=== PATIENT | female | born 1950 | race Caucasian/White ===

== ENCOUNTER 2023-05-08 15:49 | Emergency (ER) | payer MEDICARE ==
--- NOTE | 2023-05-08 15:56 | ERPHSYRPT ---
- History of Present Illness Time Seen by Provider: 05/08/23 15:55 Source: patient, family Exam Limitations: no limitations Physician History: This is a overweight 72-year-old white female patient who presents to the emergency department at the insistence of her primary care provider, Dr. Sanjuana Yo. Yesterday, 05/07/2023, the patient was receiving an infusion of so matostatin for her treatment of carcinoid syndrome and was found to have a systolic blood pressure in the 180s. Patient was discharged home and instructed to follow-up with her primary care provider today, 05/08/2023. In between the 2 visits, the patient states her systolic blood pressure was running in the low 150s. Patient has no symptoms whatsoever. She denies headache. She denies shortness of breath. She denies chest pain. Patient did see her primary care provider at 1500 today prior to arrival and again her systolic blood pressure was in the 180 range. Patient was sent to the emergency department. Patient takes losartan for her high blood pressure issues. Patient has a history of chronic anemia, gout, hypothyroidism and hypertension. Patient's hemoglobin level yesterday, 05/07/2023, was approximately 11.6. Patient states that she sees her oil heat technician tomorrow, Dr. Scanlon, on 05/09/2023 in the morning to address this issue of elevated blood pressure. Timing/Duration: yesterday Severity: mild Associated Symptoms: denies symptoms Allergies/Adverse Reactions: adhesive tape Allergy (Verified 05/08/23 16:26) nickel Allergy (Verified 05/08/23 16:26) Penicillins Allergy (Verified 05/08/23 16:26) scopolamine Allergy (Verified 05/08/23 16:26) antifungals Allergy (Uncoded 05/08/23 16:26) Home Medications: Allopurinol 300 mg [Zyloprim 300 mg] 300 mg PO DAILY 05/08/23 [History] Ferrous Sulfate 325 mg [Feosol 325 mg] 325 mg PO DAILY 05/08/23 [History] Furosemide 20 mg [Lasix 20 mg] 20 mg PO DAILY 05/08/23 [History] Levothyroxine Sodium 25 Mcg [Synthroid 25 Mcg] 25 mcg PO DAILY 05/08/23 [History] Losartan Potassium 100 mg PO DAILY 05/08/23 [History] Progesterone, Micronized [Progesterone] 200 mg PO DAILY 05/08/23 [History] Tizanidine HCl 2 mg PO HS 05/08/23 [History] estradioL [Estradiol] 2 mg PO DAILY 05/08/23 [History] Travel Risk - International Travel Have you traveled outside of the country in past 3 weeks: No - Coronavirus Screening Are you exhibiting any of the following symptoms?: No Close contact with a COVID-19 positive Pt in past 14-21 Days: No - Review of Systems Constitutional: No Symptoms Eyes: No Symptoms Ears, Nose, & Throat: No Symptoms Respiratory: No Symptoms Cardiac: No Symptoms Abdominal/Gastrointestinal: No Symptoms Genitourinary Symptoms: No Symptoms Musculoskeletal: No Symptoms Skin: No Symptoms Neurological: No Symptoms Psychological: No Symptoms Endocrine: No Symptoms Hematologic/Lymphatic: No Symptoms Immunological/Allergic: No Symptoms All Other Systems: Reviewed and Negative - Past Medical History Pertinent Past Medical History: Yes - Past Surgical History Past Surgical History: Yes - Nursing Vital Signs Nursing Vital Signs: Initial Vital Signs Temperature 97.2 F 05/08/23 16:01 Pulse Rate 77 05/08/23 16:01 Respiratory Rate 20 05/08/23 16:01 Blood Pressure 138/107 05/08/23 16:01 O2 Sat by Pulse Oximetry 100 05/08/23 16:01 Pain Scale Pain Intensity 0 - Physical Exam General Appearance: no apparent distress, alert, obese Eye Exam: PERRL/EOMI, eyes nml inspection Ears, Nose, Throat Exam: normal ENT inspection, moist mucous membranes Neck Exam: normal inspection, non-tender, supple, full range of motion Respiratory Exam: normal breath sounds, lungs clear, airway intact, No chest tenderness, No respiratory distress Cardiovascular Exam: regular rate/rhythm, normal heart sounds, normal peripheral pulses Gastrointestinal/Abdomen Exam: soft, normal bowel sounds, No tenderness Pelvic Exam: not done Rectal Exam: not done Back Exam: normal inspection, normal range of motion, No CVA tenderness, No vertebral tenderness Extremity Exam: normal inspection, normal range of motion, pelvis stable Neurologic Exam: alert, oriented x 3, cooperative, terminal clerk II-XII nml as tested, normal mood/affect, nml cerebellar function, nml station & gait, sensation nml Skin Exam: normal color, warm, dry Lymphatic Exam: No adenopathy SpO2 Interpretation: normal O2 Delivery: Room Air - Course Nursing assessment & vital signs reviewed: Yes EKG Interpreted by Me: RATE (77), NORMAL AXIS, Left Bundle Branch Block, Other (No acute ischemic changes on today's twelve-lead EKG. No comparison twelve- lead EKG available.) Ordered Tests: Active Orders 24 hr Category Date Time Status Protection Specialist STAT Care 05/08/23 17:53 Active EKG-ER Only STAT Care 05/08/23 17:55 Active IV Insertion STAT Care 05/08/23 17:53 Active CBC W DIFF Stat Lab 05/08/23 17:10 Completed CMP Stat Lab 05/08/23 17:10 Completed MAGNESIUM Stat Lab 05/08/23 17:10 Completed NT PRO BNPII Stat Lab 05/08/23 17:10 Completed T4 (Thyroxine) Stat Lab 05/08/23 17:10 Completed TROPONIN Q4H Lab 05/08/23 17:10 Completed TROPONIN Q4H Lab 05/08/23 22:00 Ordered TROPONIN Q4H Lab 05/09/23 02:00 Ordered TSH [TSH, 3RD Generation] Stat Lab 05/08/23 17:10 Completed Medication Summary Discontinued Medications Generic Name Dose Route Start Last Admin Trade Name Freq PRN Reason Stop Dose Admin Metoprolol Tartrate 5 mg 05/08/23 16:50 05/08/23 17:24 Metoprolol Tartrate 5 Mg/5 Ml Vial IV 05/08/23 16:51 5 mg STAT ONE Administration Metoprolol Tartrate Confirm 05/08/23 17:23 Metoprolol Tartrate 5 Mg/5 Ml Vial Administered 05/08/23 17:24 Dose 5 mg IV [employer] ONE Lab/Rad Data: Laboratory Result Diagrams 05/08/23 17:10 05/08/23 17:10 Laboratory Results 05/08/23 05/08/23 05/08/23 Range/Units 17:10 17:10 17:10 WBC 7.0 (4.0-10.5) x10^3/uL RBC 3.57 L (4.1-5.4) x10^6/uL Hgb 11.6 L (12.0-16.0) g/dL Hct 36.8 (35-47) % MCV 103.1 H (78-100) fL MCH 32.5 H (26-32) pg MCHC 31.5 L (32-36) g/dL RDW 14.0 (11.5-14.0) % Plt Count 284 (150-450) x10^3/uL MPV 10.8 (7.5-11.0) fL Gran % 61.6 (36.0-66.0) % Immature Gran % (Auto) 0.3 (0.00-0.4) % Nucleat RBC Rel Count 0.0 (0.00-0.1) % Eos # (Auto) 0.19 (0-0.5) x10^3/uL Immature Gran # (Auto) 0.02 (0.00-0.03) x10^3u/L Absolute Lymphs (auto) 1.66 (1.0-4.6) x10^3/uL Absolute Monos (auto) 0.75 (0.0-1.3) x10^3/uL Absolute Nucleated RBC 0.00 (0.00-0.01) x10^3u/L Lymphocytes % 23.9 L (24.0-44.0) % Monocytes % 10.8 (0.0-12.0) % Eosinophils % 2.7 (0.00-5.0) % Basophils % 0.7 (0.0-0.4) % Absolute Granulocytes 4.28 (1.4-6.9) x10^3/uL Basophils # 0.05 (0-0.4) x10^3/uL Sodium 136 L (137-145) mmol/L Potassium 4.4 (3.5-5.1) mmol/L Chloride 104 (98-107) mmol/L Carbon Dioxide 22 (22-30) mmol/L Anion Gap 13.4 (5-15) MEQ/L BUN 25 H (7-17) mg/dL Creatinine 0.85 (0.52-1.04) mg/dL Estimated GFR 71.9 ML/MIN Glucose 95 (74-106) mg/dL Calcium 9.4 (8.4-10.2) mg/dL Magnesium 1.4 L (1.6-2.3) mg/dL Total Bilirubin 0.20 (0.2-1.3) mg/dL AST 30 (14-36) U/L ALT 26 (0-35) U/L Alkaline Phosphatase 92 (38-126) U/L Troponin I < 0.012 (0.000-0.034) ng/mL NT-Pro-B Natriuret Pep 376 (<300) pg/mL Serum Total Protein 6.9 (6.3-8.2) g/dL Albumin 3.9 (3.5-5.0) g/dL Thyroxine (T4) (5.53-10.96) ug/dL TSH 3rd Generation (0.47-4.68) mIU/L 05/08/23 05/08/23 Range/Units 17:10 17:10 WBC (4.0-10.5) x10^3/uL RBC (4.1-5.4) x10^6/uL Hgb (12.0-16.0) g/dL Hct (35-47) % MCV (78-100) fL MCH (26-32) pg MCHC (32-36) g/dL RDW (11.5-14.0) % Plt Count (150-450) x10^3/uL MPV (7.5-11.0) fL Gran % (36.0-66.0) % Immature Gran % (Auto) (0.00-0.4) % Nucleat RBC Rel Count (0.00-0.1) % Eos # (Auto) (0-0.5) x10^3/uL Immature Gran # (Auto) (0.00-0.03) x10^3u/L Absolute Lymphs (auto) (1.0-4.6) x10^3/uL Absolute Monos (auto) (0.0-1.3) x10^3/uL Absolute Nucleated RBC (0.00-0.01) x10^3u/L Lymphocytes % (24.0-44.0) % Monocytes % (0.0-12.0) % Eosinophils % (0.00-5.0) % Basophils % (0.0-0.4) % Absolute Granulocytes (1.4-6.9) x10^3/uL Basophils # (0-0.4) x10^3/uL Sodium (137-145) mmol/L Potassium (3.5-5.1) mmol/L Chloride (98-107) mmol/L Carbon Dioxide (22-30) mmol/L Anion Gap (5-15) MEQ/L BUN (7-17) mg/dL Creatinine (0.52-1.04) mg/dL Estimated GFR ML/MIN Glucose (74-106) mg/dL Calcium (8.4-10.2) mg/dL Magnesium (1.6-2.3) mg/dL Total Bilirubin (0.2-1.3) mg/dL AST (14-36) U/L ALT (0-35) U/L Alkaline Phosphatase (38-126) U/L Troponin I (0.000-0.034) ng/mL NT-Pro-B Natriuret Pep (<300) pg/mL Serum Total Protein (6.3-8.2) g/dL Albumin (3.5-5.0) g/dL Thyroxine (T4) 8.49 (5.53-10.96) ug/dL TSH 3rd Generation 2.790 (0.47-4.68) mIU/L - Progress Progress: improved, re-examined Progress Note: 05/08/23 16:33 This patient's medical issue is 1 of moderate complexity. Level complex in the work-up performed is based on review of the patient's past medical history, review of the patient's medication list, review the patient's drug allergy list, history present illness and physical findings on examination. This patient work-up includes to venous line placement, twelve-lead EKG, CBC, CMP, magnesium level, troponin level, BNP. 05/08/23 18:28 I interpreted the labs that were resulted. Her magnesium is slightly low. I will provide her with 1 g of intravenous magnesium. Patient will be discharged to home and she is to continue her medication as prescribed and to follow-up with her oil heat technician tomorrow on 05/09/2023 Counseled pt/family regarding: lab results, diagnosis, need for follow-up Medical Desision Making - Diagnostic Testing Diagnostic test were ordered, analyzed, and reviewed by me: Yes - Risk of complications Low Risk: Low risk of morbidity from additional dx testing or treatment - Departure Departure Disposition: Home Clinical Impression: Hypertension, Hypomagnesemia Condition: Stable Critical Care Time: No Referrals: ESSIE YO [Primary Care Provider] - Follow up/PCP as directed Additional Instructions: Plenty of fluids. Take your medication as prescribed. Monitor your blood pressure and keep a written log of the value this evening and then repeat it tomorrow morning and take this to your oil heat technician tomorrow morning.
[2023-05-08 16:24] VITALS: TEMP 97.2
[2023-05-08] MEDS ORDERED: LOPRESSOR INJECTION IV ONE ×2 (16:50→17:23)
[2023-05-08 18:03] LABS: Absolute Neutrophil Ct (ANC) 4.28 x10^3/uL (1.4-6.9); BASOPHIL % 0.7 % (0.0-0.4); Basophil (Absolute #) 0.05 x10^3/uL (0-0.4); Eosinophil % 2.7 % (0.00-5.0); Eosinophil (Absolute #) 0.19 x10^3/uL (0-0.5); Hematocrit 36.8 % (35-47); Hemoglobin 11.6 g/dL (12.0-16.0); IMMATURE GRAN # 0.02 x10^3u/L (0.00-0.03); IMMATURE GRAN % 0.3 % (0.00-0.4); Lymphocyte (Absolute #) 1.66 x10^3/uL (1.0-4.6); Lymphocytes % 23.9 % (24.0-44.0); Mean Cell Volume 103.1 fL (78-100); Mean Corpuscular Hemoglobin 32.5 pg (26-32); Mean Corpuscular Hgb Concent. 31.5 g/dL (32-36); Mean Platelet Volume 10.8 fL (7.5-11.0); Monocyte (Absolute #) 0.75 x10^3/uL (0.0-1.3); Monocytes % 10.8 % (0.0-12.0); Neutrophil % 61.6 % (36.0-66.0); Platelet Count 284 x10^3/uL (150-450); Red Blood Count 3.57 x10^6/uL (4.1-5.4)
[2023-05-08 18:08] LABS: ALBUMIN 3.9 g/dL (3.5-5.0); ANION GAP 13.4 MEQ/L (5-15); BILIRUBIN,TOTAL 0.2 mg/dL (0.2-1.3); Calcium 9.4 mg/dL (8.4-10.2); Creatinine 1 0.85 mg/dL (0.52-1.04); EST GLOMERULAR FILTRATION RATE 71.9 ML/MIN; MAGNESIUM 1.4 mg/dL (1.6-2.3); Potassium 4.4 mmol/L (3.5-5.1); Total Protein 6.9 g/dL (6.3-8.2)
[2023-05-08 18:20] LABS: NT PRO BNPII 376 pg/mL (<300); TROPONIN < 0.012 ng/mL (0.000-0.034)
[2023-05-08] MEDS ORDERED: Magnesium 1 Gm / 100 Ml D5W*** 100 ML IV ONE (18:30)
[2023-05-08] MEDS ORDERED: MAG-OX 400 PO ONE (18:31)
[2023-05-08] MEDS ORDERED: MAG-OX 400 ONE (18:36)
[2023-05-08 18:41] VITALS: BP 159/76; PULSE 63; RESP 16; O2SAT 97
== END 2023-05-08 18:57 | disposition home or self-care (01) ==
LOC: ED 15:49
DX: I10 Essential (primary) hypertension (principal); E83.42 Hypomagnesemia; Z79.899 Other long term (current) drug therapy
CPT/HCPCS: 36000; 36415; 80053; 83735; 83880; 84436; 84443; 84484; 85025; 93005; 93041; 96374; 99284; A9270-GY

== ENCOUNTER 2023-07-02 11:08 | Observation (INO) | payer MEDICARE ==
[~2023-07-02 11:08] MED LIST: Decadron 4 MG INJ IV ONE; Sodium Chloride 0.9(Preservative Free) 10 ML IJ ONE; XYLOCAINE-MPF 1% 5ML SDV IJ ONE
[2023-07-02] MEDS ORDERED: DIPRIVAN 200 MG/20 ML IV ONE (13:32)
[2023-07-02] MEDS ORDERED: MORPHINE SULFATE 2 MG INJ ONE ×2 (13:48→14:08)
[2023-07-02] MEDS ORDERED: Hydromorphone 1 mg/ml Injection ONE ×3 (14:29→14:52)
--- NOTE | 2023-07-02 15:07 | XRAY ---
Indication: Left L4-S1 transforaminal NAHID. Intraoperative fluoroscopy provided for 34 seconds. 6 digital spot images submitted for interpretation demonstrates posterior needle tips projecting over the expected left L4 and L5 nerve roots. Small amount of contrast injected for needle tip placement. Correlate with intraoperative findings/report.
--- NOTE | 2023-07-02 15:08 | XRAY ---
Indication: Left piriformis injection. Intraoperative fluoroscopy provided for 11 seconds. Single digital spot images submitted for interpretation demonstrates posterior needle tip projecting over the left piriformis. Small amount of contrast injected for needle tip placement. Correlate with intraoperative findings/report.
[2023-07-02] MEDS ORDERED: Zofran 4 MG/2 ML VIAL ONE (15:29)
[2023-07-02] MEDS ORDERED: Lactated Ringers 1,000 ML IV ONE (16:51)
--- NOTE | 2023-07-02 16:57 | XRAY ---
34 seconds of fluoroscopy was used in surgery for a left L4-S1 transforaminal NAHID.
--- NOTE | 2023-07-02 16:57 | XRAY ---
11 seconds of fluoroscopy was used in surgery for a left piriformis injection.
--- NOTE | 2023-07-02 17:13 | PCM.HP ---
History of Present Illness - Chief Complaint Chief Complaint: vomiting post anesthesia Date: 07/02/23 History of Present Illness: is a 72 year old female she with PMHX of IBS, pacemaker, kidney stones, Carcinoid syndrome (follows with oncology and gets injections Q 3 weeks, last one was 1 weeks ago), multiple lipomas involving liver, pancreas and intestines, HTN, hypothyroidism, and most recently sciatic nerve pain. She received a transforaminal and piriformis injection with Dr. Leong today with MAC anesthesia. Post op she had some pain that was well controlled with Morphine. However, she is having continued bouts of nausea and vomiting. Dr. Leong asked that we keep her overnight for observation. Will continue antiemetics, and pain meds PRN. She denies any further concerns at this time. - Review of Systems Constitutional: No Fever, No Chills Eyes: No Symptoms Ears, Nose, & Throat: No Symptoms Respiratory: No Cough, No Short Of Breath Cardiac: No Chest Pain, No Edema, No Syncope Abdominal/Gastrointestinal: Nausea, Vomiting, No Abdominal Pain, No Diarrhea Genitourinary Symptoms: No Dysuria Musculoskeletal: No Back Pain, No Neck Pain Skin: No Rash Neurological: No Dizziness, No Focal Weakness, No Sensory Changes Psychological: No Symptoms Endocrine: No Symptoms Hematologic/Lymphatic: No Symptoms Immunological/Allergic: No Symptoms Medications & Allergies Home Medications: Home Medication List Allopurinol 300 mg [Zyloprim 300 mg] 300 mg PO DAILY 05/08/23 [History Confirmed 07/02/23] Ferrous Sulfate 325 mg [Feosol 325 mg] 325 mg PO DAILY 05/08/23 [History Confirmed 07/02/23] Furosemide 20 mg [Lasix 20 mg] 20 mg PO DAILY 05/08/23 [History Confirmed 07/02/23] Levothyroxine Sodium 25 Mcg [Synthroid 25 Mcg] 25 mcg PO UD 05/08/23 [History Confirmed 07/02/23] Progesterone, Micronized [Progesterone] 200 mg PO DAILY 05/08/23 [History Confirmed 07/02/23] Tizanidine HCl 2 mg PO 1300 05/08/23 [History Confirmed 07/02/23] estradioL [Estradiol] 2 mg PO DAILY 05/08/23 [History Confirmed 07/02/23] Acetaminophen 325 mg [Tylenol 325 mg] 650 mg PO QID 07/02/23 [History Confirmed 07/02/23] Calcium Carbonate [Calcium] 5,000 iu PO DAILY 07/02/23 [History Confirmed 07/02/23] Cholecalciferol (Vitamin D3) [Vitamin D3] 5,000 iu PO DAILY 07/02/23 [History Confirmed 07/02/23] Cyanocobalamin (Vitamin B-12) [Vitamin B-12] 5,000 iu PO DAILY 07/02/23 [History Confirmed 07/02/23] Magnesium Oxide [Magnesium] 400 mg PO DAILY 07/02/23 [History Confirmed 07/02/23] Multivit-Min/Iron/Folic Acid/K [Adults Multivitamin Caplet] 1 each PO DAILY 07/02/23 [History Confirmed 07/02/23] Octreotide Acetate [Sandostatin] 30 mcg IM UD 07/02/23 [History Confirmed 07/02/23] Spironolact/Hydrochlorothiazid [Spironolactone-Hctz 25-25 Tab] 1 each PO DAILY 07/02/23 [History Confirmed 07/02/23] Allergies/Adverse Reactions: Allergies Allergy/AdvReac Type Severity Reaction Status Date / Time adhesive tape Allergy Verified 05/08/23 16:26 nickel Allergy Verified 05/08/23 16:26 Penicillins Allergy Verified 05/08/23 16:26 scopolamine Allergy Verified 05/08/23 16:26 antifungals Allergy Uncoded 05/08/23 16:26 - Past Medical History Past Medical History: Yes Cardiac History: Hypertension Endocrine Medical History: Hypothyroidism GI Medical History: Other Comment: anemia. carcenoid syndrome. c diff several times - Past Surgical History Past Surgical History: Yes Cardiac History: Pacemaker GI Surgical History: Cholecystectomy, Colon Resection Musculskeletal Surgical Hx: Orthopedic Surgery Female Surgical History: Hysterectomy Other Surgical History: foot surgery, breast reduction, fundo plycation - Social History Smoking Status: Never smoker Exposure to second hand smoke: No Alcohol: None Drug Use: none - Physical Exam General Appearance: no apparent distress, alert Neurologic Exam: alert, oriented x 3, cooperative, normal mood/affect, nml cerebellar function, nml station & gait, sensation nml, No motor deficits Eye Exam: PERRL/EOMI, eyes nml inspection Ears, Nose, Throat Exam: normal ENT inspection, TMs normal, pharynx normal, moist mucous membranes Neck Exam: normal inspection, non-tender, supple, full range of motion Respiratory Exam: normal breath sounds, lungs clear, No respiratory distress Cardiovascular Exam: regular rate/rhythm, normal heart sounds, normal peripheral pulses Gastrointestinal/Abdomen Exam: soft, normal bowel sounds, No tenderness, No mass Back Exam: normal inspection, normal range of motion, No CVA tenderness, No vertebral tenderness Extremity Exam: normal inspection, normal range of motion, pelvis stable Skin Exam: normal color, warm, dry, No rash Lymphatic Exam: No adenopathy Results - Radiology Impressions Radiology Exams & Impressions: Radiology Procedures Category Date Time Status FLUORO FOR NAHID-PMG Routine Exams 07/02/23 13:42 [address]O GUIDE NEEDLE PLACE-PMG Routine Exams 07/02/23 13:42 Completed LUMBAR LIMITED (2 OR 3 VIEWS) Routine Exams 07/02/23 13:42 Completed PELVIS (1 OR 2 VIEWS) Routine Exams 07/02/23 13:42 Completed Assessment/Plan (1) Postoperative nausea and vomiting Current Visit: Yes Status: Acute Assessment & Plan: - labs pending - Zofran, compazine alternate PRN - clear liquid diet - IVF- gentle hydration d/t heart hx - tele - Hold all other home meds for now. Code(s): R11.2 - NAUSEA WITH VOMITING, UNSPECIFIED; Z98.890 - OTHER SPECIFIED POSTPROCEDURAL STATES (2) Hypertension Current Visit: No Status: Acute Assessment & Plan: - Start amlodipine 5mg now with lasix - pt reports + edema with amlodipine so this is a recent reduced dose of amlodipine and added lasix by cardiology. Code(s): I10 - ESSENTIAL (PRIMARY) HYPERTENSION (3) Obesity, Class III, BMI 40-49.9 (morbid obesity) Current Visit: Yes Status: Acute Assessment & Plan: -advised diet and exercise control. Code(s): E66.01 - MORBID (SEVERE) OBESITY DUE TO EXCESS CALORIES
[2023-07-02] MEDS ORDERED: Compazine 10 MG/2 ML IM PRN (17:17)
[2023-07-02] MEDS ORDERED: Zofran 4 MG/2 ML VIAL IV PRN (17:17)
[2023-07-02] MEDS ORDERED: TYLENOL 325 MG PO PRN (17:18)
[2023-07-02] MEDS ORDERED: NORVASC 5 MG PO ONE (17:57)
[2023-07-02] MEDS ORDERED: Sodium Chloride 0.9% 1000 ML 1,000 ML IV SCH (18:15)
[2023-07-02 18:50] VITALS: RESP 18
[2023-07-02 19:09] LABS: Hematocrit 40.9 % (35-47); Hemoglobin 12.9 g/dL (12.0-16.0); Mean Corpuscular Hemoglobin 32.5 pg (26-32); Mean Corpuscular Hgb Concent. 31.5 g/dL (32-36); Mean Platelet Volume 10.3 fL (7.5-11.0); Platelet Count 295 x10^3/uL (150-450); Red Blood Count 3.97 x10^6/uL (4.1-5.4); White Blood Count 10.3 x10^3/uL (4.0-10.5)
[2023-07-02 19:24] LABS: ALBUMIN 4.4 g/dL (3.5-5.0); ANION GAP 14.7 MEQ/L (5-15); BILIRUBIN,TOTAL 0.5 mg/dL (0.2-1.3); Calcium 9.2 mg/dL (8.4-10.2); Creatinine 1 0.92 mg/dL (0.52-1.04); EST GLOMERULAR FILTRATION RATE 65.3 ML/MIN; MAGNESIUM 1.5 mg/dL (1.6-2.3); Potassium 3.5 mmol/L (3.5-5.1); Total Protein 7.8 g/dL (6.3-8.2)
[2023-07-02] MEDS: LASIX 20 MG PO SCH (20:25)
[2023-07-03 04:58] LABS: Hemoglobin 12.7 g/dL (12.0-16.0); Mean Corpuscular Hemoglobin 32.4 pg (26-32); Mean Corpuscular Hgb Concent. 31.8 g/dL (32-36); Mean Platelet Volume 10.2 fL (7.5-11.0); Platelet Count 345 x10^3/uL (150-450); Red Blood Count 3.92 x10^6/uL (4.1-5.4); White Blood Count 11.3 x10^3/uL (4.0-10.5)
[2023-07-03 05:01] VITALS: O2SAT 96
[2023-07-03 05:45] LABS: ALBUMIN 4.3 g/dL (3.5-5.0); ANION GAP 14.7 MEQ/L (5-15); BILIRUBIN,TOTAL 0.5 mg/dL (0.2-1.3); Calcium 9.2 mg/dL (8.4-10.2); Creatinine 1 0.91 mg/dL (0.52-1.04); EST GLOMERULAR FILTRATION RATE 66.2 ML/MIN; Potassium 4.1 mmol/L (3.5-5.1); Total Protein 7.6 g/dL (6.3-8.2)
[2023-07-03] MEDS ORDERED: MAG-OX 400 PO ONE (07:29)
[2023-07-03 07:32] VITALS: BP 150/67; PULSE 99; TEMP 96.5
[2023-07-03] MEDS ORDERED: SYNTHROID 25 MCG PO SCH (08:00)
[2023-07-03] MEDS: ESTRACE 1 MG PO SCH ×2 (08:14→08:27)
[2023-07-03] MEDS: NON-FORMULARY ITEM PO SCH ×2 (08:14→08:28)
[2023-07-03] MEDS: Calcium 500MG W/Vit D Tablet PO SCH ×2 (08:20→08:27)
[2023-07-03] MEDS: LASIX 20 MG PO SCH (08:20)
[2023-07-03] MEDS: FEOSOL 325 MG PO SCH ×2 (08:20→08:28)
--- NOTE | 2023-07-03 09:20 | PCM.DS ---
Discharge Summary Date of Admission: 07/02/23 17:14 Date of Discharge: 07/03/23 Admitting Physician: MICHELE MELENDEZ MD Primary Care Provider: ESSIE YO Allergies Allergies adhesive tape Allergy (Verified 05/08/23 16:26) nickel Allergy (Verified 05/08/23 16:26) Penicillins Allergy (Verified 05/08/23 16:26) scopolamine Allergy (Verified 05/08/23 16:26) antifungals Allergy (Uncoded 05/08/23 16:26) Hospital Summary - Hospital Course Hospital Course: 07/02/23 is a 72 year old female she with PMHX of IBS, pacemaker, kidney sto robert, Carcinoid syndrome (follows with oncology and gets injections Q 3 weeks, last one was 1 weeks ago), multiple lipomas involving liver, pancreas and intestines, HTN, hypothyroidism, and most recently sciatic nerve pain. She received a transforaminal and piriformis injection with Dr. Leong today with MAC anesthesia. Post op she had some pain that was well controlled with Morphine. However, she is having continued bouts of nausea and vomiting. Dr. Leong asked that we keep her overnight for observation. Will continue antiemetics, and pain meds PRN. She denies any further concerns at this time. 07/03/23 Pt sitting up in chair. She explained she is feeling much better today. She reports she is able to stand up straight for the first time in years. She has not had any N/V since given Compazine last night. She does have a H/A and took some Tylenol for this. Discussed pt case with Dr. Leong and let him know she is feeling much better. She is wanting to go home. She denies any further concerns at this time. - Vitals & Intake/Output Vital Signs: Vital Signs Temperature 96.5 F 07/03/23 07:31 Pulse Rate 99 H 07/03/23 07:31 Respiratory Rate 18 07/03/23 07:31 Blood Pressure 150/67 07/03/23 07:31 O2 Sat by Pulse Oximetry 96 07/03/23 07:31 Intake & Output: Intake & Output 06/30/23 07/01/23 07/02/23 07/03/23 11:59 11:59 11:59 11:59 Intake Total 781 Balance 781 Weight 107.1 kg - Lab Result Diagrams: 07/03/23 04:53 07/03/23 04:53 Lab Results-Last 24 Hrs: Lab Results-Last 24 Hours 07/02/23 07/02/23 07/03/23 Range/Units 19:07 19:07 04:53 WBC 10.3 11.3 H (4.0-10.5) x10^3/uL RBC 3.97 L 3.92 L (4.1-5.4) x10^6/uL Hgb 12.9 12.7 (12.0-16.0) g/dL Hct 40.9 40.0 (35-47) % MCV 103.0 H 102.0 H (78-100) fL MCH 32.5 H 32.4 H (26-32) pg MCHC 31.5 L 31.8 L (32-36) g/dL RDW 14.0 14.0 (11.5-14.0) % Plt Count 295 345 (150-450) x10^3/uL MPV 10.3 10.2 (7.5-11.0) fL Sodium 136 L (137-145) mmol/L Potassium 3.5 (3.5-5.1) mmol/L Chloride 100 (98-107) mmol/L Carbon Dioxide 25 (22-30) mmol/L Anion Gap 14.7 (5-15) MEQ/L BUN 33 H (7-17) mg/dL Creatinine 0.92 (0.52-1.04) mg/dL Estimated GFR 65.3 ML/MIN Glucose 155 H (74-106) mg/dL Calcium 9.2 (8.4-10.2) mg/dL Magnesium 1.5 L (1.6-2.3) mg/dL Total Bilirubin 0.50 (0.2-1.3) mg/dL AST 50 H (14-36) U/L ALT 31 (0-35) U/L Alkaline Phosphatase 110 (38-126) U/L Serum Total Protein 7.8 (6.3-8.2) g/dL Albumin 4.4 (3.5-5.0) g/dL Amylase 76 (30-110) U/L Lipase 87 (23-300) U/L 07/03/23 Range/Units 04:53 WBC (4.0-10.5) x10^3/uL RBC (4.1-5.4) x10^6/uL Hgb (12.0-16.0) g/dL Hct (35-47) % MCV (78-100) fL MCH (26-32) pg MCHC (32-36) g/dL RDW (11.5-14.0) % Plt Count (150-450) x10^3/uL MPV (7.5-11.0) fL Sodium 134 L (137-145) mmol/L Potassium 4.1 (3.5-5.1) mmol/L Chloride 99 (98-107) mmol/L Carbon Dioxide 24 (22-30) mmol/L Anion Gap 14.7 (5-15) MEQ/L BUN 27 H (7-17) mg/dL Creatinine 0.91 (0.52-1.04) mg/dL Estimated GFR 66.2 ML/MIN Glucose 151 H (74-106) mg/dL Calcium 9.2 (8.4-10.2) mg/dL Magnesium (1.6-2.3) mg/dL Total Bilirubin 0.50 (0.2-1.3) mg/dL AST 41 H (14-36) U/L ALT 31 (0-35) U/L Alkaline Phosphatase 108 (38-126) U/L Serum Total Protein 7.6 (6.3-8.2) g/dL Albumin 4.3 (3.5-5.0) g/dL Amylase (30-110) U/L Lipase (23-300) U/L - Radiology Exams Ordered Rad Exams-Entire Visit: Radiology Procedures Category Date Time Status FLUORO FOR NAHID-PMG Routine Exams 07/02/23 13:42 Com[address]O GUIDE NEEDLE PLACE-PMG Routine Exams 07/02/23 13:42 Completed LUMBAR LIMITED (2 OR 3 VIEWS) Routine Exams 07/02/23 13:42 Completed PELVIS (1 OR 2 VIEWS) Routine Exams 07/02/23 13:42 Completed Discharge Exam General Appearance: no apparent distress, alert Neurologic Exam: alert, oriented x 3, cooperative, normal mood/affect, nml cerebellar function, sensation nml, No motor deficits Eye Exam: PERRL, EOMI, eyes nml inspection Ears, Nose, Throat Exam: normal ENT inspection, pharynx normal, moist mucous membranes Neck Exam: normal inspection, non-tender, supple, full range of motion Respiratory Exam: normal breath sounds, lungs clear, No respiratory distress Cardiovascular Exam: regular rate/rhythm, normal heart sounds Gastrointestinal/Abdomen Exam: soft, No tenderness, No mass Pelvic Exam: deferred Rectal Exam: deferred Back Exam: normal inspection, normal range of motion, No CVA tenderness, No vertebral tenderness Extremity Exam: normal inspection, normal range of motion Skin Exam: normal color, warm, dry Final Diagnosis/Problem List - Final Discharge Diagnosis/Problem (1) Postoperative nausea and vomiting Current Visit: Yes Status: Acute Assessment & Plan: - IVF- gentle hydration d/t heart hx - tele - sxs resolved after 1 dose of compazine last night - tolerated diet well this morning Code(s): R11.2 - NAUSEA WITH VOMITING, UNSPECIFIED; Z98.890 - OTHER SPECIFIED POSTPROCEDURAL STATES (2) Hypertension Current Visit: No Status: Acute Assessment & Plan: - stable resume home meds - f/u with cardiology and PCP OP Code(s): I10 - ESSENTIAL (PRIMARY) HYPERTENSION (3) Obesity, Class III, BMI 40-49.9 (morbid obesity) Current Visit: Yes Status: Acute Assessment & Plan: -advised diet and exercise control. Code(s): E66.01 - MORBID (SEVERE) OBESITY DUE TO EXCESS CALORIES (4) Hypomagnesemia Current Visit: Yes Status: Acute Assessment & Plan: -magnesium 1.5- replaced - cont home dose of magesium daily for chronic hypomagnesemia Code(s): E83.42 - HYPOMAGNESEMIA - Discharge Discharge Date: 07/03/23 Disposition: Home, Self-Care Condition: Stable Prescriptions: Continue Furosemide 20 mg [Lasix 20 mg] 20 mg PO DAILY Ferrous Sulfate 325 mg [Feosol 325 mg] 325 mg PO DAILY Tizanidine HCl 2 mg PO 1300 Allopurinol 300 mg [Zyloprim 300 mg] 300 mg PO DAILY Levothyroxine Sodium 25 Mcg [Synthroid 25 Mcg] 25 mcg PO UD estradioL [Estradiol] 2 mg PO DAILY Progesterone, Micronized [Progesterone] 200 mg PO DAILY Magnesium Oxide [Magnesium] 400 mg PO DAILY Octreotide Acetate [Sandostatin] 30 mcg IM UD Multivit-Min/Iron/Folic Acid/K [Adults Multivitamin Caplet] 1 each PO DAILY Cyanocobalamin (Vitamin B-12) [Vitamin B-12] 5,000 iu PO DAILY Cholecalciferol (Vitamin D3) [Vitamin D3] 5,000 iu PO DAILY Calcium Carbonate [Calcium] 5,000 iu PO DAILY Acetaminophen 325 mg [Tylenol 325 mg] 650 mg PO QID Spironolact/Hydrochlorothiazid [Spironolactone-Hctz 25-25 Tab] 1 each PO DAILY Amlodipine Besylate 5 mg [Norvasc 5 mg] 5 mg PO DAILY Follow up with: ESSIE YO [Primary Care Provider] -
[2023-07-03] MEDS ORDERED: [UNRECOGNIZED DRUG - OTHER] PO SCH (10:00)
[2023-07-03] MEDS ORDERED: ZYLOPRIM 300 MG PO SCH (10:00)
[2023-07-03] MEDS ORDERED: NON-FORMULARY ITEM (Cholecalciferol (Vitamin D3) [Vitamin D3] 50 MCG Tablet) PO SCH (10:00)
[2023-07-03] MEDS ORDERED: hydroDIURIL 25 MG PO SCH (10:00)
[2023-07-03] MEDS ORDERED: TYLENOL 325 MG PO SCH (10:00)
[2023-07-03] MEDS ORDERED: NORVASC 5 MG PO SCH (10:00)
[2023-07-03] MEDS ORDERED: NON-FORMULARY ITEM (Cyanocobalamin (Vitamin B-12) [Vitamin B-12] 5,000 MCG Capsule) PO SCH (10:00)
[2023-07-03] MEDS ORDERED: IRON PO SCH (10:00)
[2023-07-03] MEDS ORDERED: Aldactone 25 MG PO SCH (10:00)
[2023-07-03] MEDS ORDERED: FOLIC ACID PO SCH (10:00)
[2023-07-03] MEDS ORDERED: Vitamin B-12 500 MCG PO SCH (10:00)
[2023-07-03] MEDS ORDERED: MULTIVIT MIN PO SCH (10:00)
[2023-07-03] MEDS ORDERED: VITAMIN D PO SCH (10:00)
[2023-07-03] MEDS ORDERED: NON-FORMULARY ITEM (Progesterone, Micronized [Progesterone] 200 MG Capsule) PO SCH (10:00)
[2023-07-03] MEDS ORDERED: ESTRADIOL 2 MG PO SCH (10:00)
[2023-07-03] MEDS ORDERED: NON-FORMULARY ITEM (Calcium Carbonate [Calcium] 500 MG Tablet) PO SCH (10:00)
[2023-07-03] MEDS ORDERED: THERAGRAN MULTIVITAMIN PO SCH (10:00)
[2023-07-03] MEDS ORDERED: Zanaflex 4 MG PO SCH (13:00)
[2023-07-03] MEDS ORDERED: NON-FORMULARY ITEM (Tizanidine Hcl [Tizanidine Hcl] 2 MG Capsule) PO SCH (13:00)
[2023-07-05] MEDS ORDERED: SYNTHROID 50 MCG PO SCH (08:00)
== END 2023-07-03 11:02 | disposition home or self-care (01) ==
LOC: SDC-PAIN 11:08 → MED SURG 17:14
PROVIDERS: ADMIT Internal Medicine; ATTEND Internal Medicine
DX: R11.2 Nausea with vomiting, unspecified (principal); I10 Essential (primary) hypertension; M54.16 Radiculopathy, lumbar region; M79.18 Myalgia, other site; E66.01 Morbid (severe) obesity due to excess calories; E83.42 Hypomagnesemia; E03.9 Hypothyroidism, unspecified; Z79.899 Other long term (current) drug therapy; Z20.828 Contact with and (suspected) exposure to other viral communicable diseases
CPT/HCPCS: 01992; 20552; 36415; 64483; 64484; 72100; 72170; 77002; 77003; 80053; 82150; 83690; 83735; 85027; 93268; 99100; G0378; Q3014; J1100; J1170; J2270; J2405; J2704; Q9966; A9270-GY